=== PATIENT | female | born 1975 | race Hispanic/Latino ===

== ENCOUNTER 2023-02-11 12:55 | Day surgery (SDC) | payer BC ==
[2023-02-11] MEDS ORDERED: Acetaminophen 500 MG TAB ONE (13:17)
[2023-02-11] MEDS ORDERED: Acetaminophen 500 MG TAB PO SCH (13:30)
[2023-02-11] MEDS ORDERED: Iron Sucrose Complex 500 MG in Sodium Chloride 0.9% 250 ML 250 ML IVPB SCH (13:30)
== END 2023-02-11 18:35 | disposition home or self-care (01) ==
LOC: CSHSDC/OP 12:55
PROVIDERS: ATTEND Obstetrics & Gynecology
DX: E61.1 Iron deficiency (principal)
CPT/HCPCS: J1756; J7050

== ENCOUNTER 2023-04-09 10:13 | Outpatient (CLI) | payer BC ==
[~2023-04-09 10:13] MED LIST: Magnevist 469MG/ML 20 ML VIAL ONE
== END 2023-04-09 10:14 | disposition home or self-care (01) ==
LOC: CSHMRI 10:13
PROVIDERS: ATTEND Obstetrics & Gynecology
DX: D25.9 Leiomyoma of uterus, unspecified (principal); N13.30 Unspecified hydronephrosis
CPT/HCPCS: 72197; A9579

== ENCOUNTER 2024-10-01 10:15 | Outpatient (CLI) | payer BC | END 2024-10-01 10:16 | disposition home or self-care (01) | LOC: CSHRAD 10:15 | PROVIDERS: ATTEND Family Medicine | DX: M25.561 Pain in right knee (principal) ==